=== PATIENT | female | born 1975 | race Caucasian/White ===

== ENCOUNTER 2017-04-27 14:56 | Emergency (ER) | payer MEDICAID, OTHER ==
[~2017-04-27] VITALS: Ht 172.7 cm; Wt 63.5 kg
[2017-04-27] MEDS ORDERED: SODIUM CHLORIDE 0.9% 1,000 ML IV ONE (15:20)
[2017-04-27] MEDS ORDERED: LORazepam 2MG/ML-1ML VIAL ONE (15:20)
[2017-04-27] MEDS ORDERED: LORazepam 2MG/ML-1ML VIAL IV ONE (15:30)
[2017-04-27 16:13] LABS: Basophils # (auto) 0 uL; Basophils % (auto) 0.4 % (0.0-2.0); CONDITION Y; Eosinophils # (auto) 0 uL; Eosinophils % (auto) 0.4 % (0.0-7.0); Hematocrit 35.1 % (36.0-46.0); Hemoglobin 11.5 g/dL (12.2-16.2); Lymphocytes # (auto) 1.6 uL; Lymphocytes % (auto) 22.5 % (10.0-50.0); Mean Corpuscular Hemoglobin 27.1 pg (28.0-32.0); Mean Corpuscular Hgb Conc. 32.8 g/dL (32.0-36.0); Mean Corpuscular Volume 82.6 fL (80.0-100.0); Mean Platelet Volume 8.6 fL (7.4-10.4); Monocytes # (auto) 0.4 uL; Monocytes % (auto) 6.2 % (0.0-12.0); Neutrophils # (auto) 4.9 uL; Neutrophils % (auto) 70.5 % (37.0-80.0); Platelet Count (auto) 416 10^3/uL (140-450); Red Cell Distribution Width 14.3 % (11.6-16.0)
[2017-04-27 16:22] LABS: Urine RBC None Seen /hpf (0 - 4)
[2017-04-27 16:31] LABS: Urine Bilirubin Negative (Negative); Urine Blood Negative /uL (Negative); Urine Color Yellow (Yellow); Urine Glucose Normal (Normal); Urine Ketone Negative (Negative); Urine Mucus FEW (None Seen); Urine Nitrite Negative (Negative); Urine Squamous Epithelial Cell FEW /hpf (<5); Urine Urobilinogen Normal (Negative)
[2017-04-27 16:33] LABS: Albumin 3.2 g/dL (3.4-5.0); Calcium 8.7 mg/dL (8.5-10.1); Magnesium 2.2 mg/dL (1.6-2.6)
[2017-04-27 16:41] LABS: Bilirubin, Total 0.2 mg/dL (0.2-1.0); Total Protein 6.8 g/dL (6.4-8.2)
[2017-04-27] MEDS ORDERED: VALPROATE INJ 1,000 MG in SODIUM CHL 0.9% 100 ML IV ONE (17:30)
[2017-04-27 19:50] VITALS: BP 110/78
== END 2017-04-27 20:01 | disposition home or self-care (01) ==
LOC: ER 15:04
DX: G40.909 Epilepsy, unspecified, not intractable, without status epilepticus (principal); R42 Dizziness and giddiness; R53.1 Weakness
CPT/HCPCS: 36415; 80053; 80164; 81001; 82962; 83735; 85025; 94761; 96361; 96365; 96375; 99285; J2060; J7030

== ENCOUNTER 2017-05-12 15:39 | Emergency (ER) | payer MEDICAID ==
[~2017-05-12] VITALS: Ht 175.3 cm; Wt 63.5 kg
[2017-05-12 17:03] VITALS: BP 113/79
== END 2017-05-12 17:43 | disposition home or self-care (01) ==
LOC: ER 15:40
DX: R56.9 Unspecified convulsions (principal); Z76.0 Encounter for issue of repeat prescription; R53.1 Weakness; Z86.73 Personal history of transient ischemic attack (TIA), and cerebral infarction without residual deficits; Z88.1 Allergy status to other antibiotic agents

== ENCOUNTER 2017-05-27 07:57 | Emergency (ER) | payer MEDICAID ==
[2017-05-27 08:01] VITALS: BP 104/70
== END 2017-05-27 09:05 | disposition home or self-care (01) ==
LOC: ER 07:57
DX: R56.9 Unspecified convulsions (principal); Z86.73 Personal history of transient ischemic attack (TIA), and cerebral infarction without residual deficits; Z76.0 Encounter for issue of repeat prescription; Z88.8 Allergy status to other drugs, medicaments and biological substances

== ENCOUNTER 2017-06-10 14:58 | Emergency (ER) | payer MEDICAID ==
[~2017-06-10] VITALS: Ht 175.3 cm; Wt 61.2 kg
[2017-06-10 15:35] VITALS: BP 104/68
[2017-06-10] MEDS ORDERED: KETOROLAC TROMETH 60MG/2ML VIAL IM ONE (15:45)
== END 2017-06-10 16:10 | disposition home or self-care (01) ==
LOC: ER 15:07
DX: S20.212A Contusion of left front wall of thorax, initial encounter (principal); Z88.8 Allergy status to other drugs, medicaments and biological substances; Z86.73 Personal history of transient ischemic attack (TIA), and cerebral infarction without residual deficits; W22.8XXA Striking against or struck by other objects, initial encounter; Y93.89 Activity, other specified; Y92.091 Bathroom in other non-institutional residence as the place of occurrence of the external cause; Y99.8 Other external cause status
CPT/HCPCS: 71020; 96372; 99284; J1885

== ENCOUNTER 2017-07-29 09:22 | Inpatient (IN) | payer MEDICAID ==
[~2017-07-29] VITALS: Ht 172.7 cm; Wt 65.9 kg
[2017-07-29 10:03] LABS: Basophils # (auto) 0.1 uL; Basophils % (auto) 2.2 % (0.0-2.0); Eosinophils # (auto) 0.1 uL; Hematocrit 35.4 % (36.0-46.0); Hemoglobin 11.1 g/dL (12.2-16.2); Mean Corpuscular Hemoglobin 25.6 pg (28.0-32.0); Mean Corpuscular Hgb Conc. 31.4 g/dL (32.0-36.0); Mean Corpuscular Volume 81.7 fL (80.0-100.0); Mean Platelet Volume 8.1 fL (6.9-10.8); Monocytes # (auto) 0.4 uL; Monocytes % (auto) 7.4 % (0.0-12.0); Neutrophils # (auto) 2.5 uL; Neutrophils % (auto) 50.4 % (37.0-80.0); Nucleated Red Blood Cells % 0.1 %; Platelet Count (auto) 249 10^3/uL (140-450); Red Cell Distribution Width 15.5 % (11.8-14.3)
[2017-07-29 10:19] LABS: Albumin 2.1 g/dL (3.4-5.0); Alkaline Phosphatase 44 U/L (45-117); Anion Gap 7 (5-15); Aspartate Aminotransferase 7 U/L (15-37); BUN/Creatinine Ratio 39.4; Bilirubin, Total 0.1 mg/dL (0.2-1.0); Blood Urea Nitrogen 13 mg/dL (7-18); Carbon Dioxide 18 mmol/L (21-32); Chloride 121 mmol/L (98-107); GFR African American 281 mL/min; GFR Non-African American 232 mL/min; Glucose 57 mg/dL (74-106); Magnesium 1.6 mg/dL (1.6-2.6); Sodium 146 mmol/L (136-145); Total Protein 4.4 g/dL (6.4-8.2)
[2017-07-29 10:22] LABS: Calcium 5.9 mg/dL (8.5-10.1)
[2017-07-29 10:28] LABS: INR 1.15 (0.9-1.15); Partial Thromboplastin Time 30.9 sec (22.64-33.71); Prothrombin Time 12.5 sec (9.37-12.3)
[2017-07-29] MEDS ORDERED: CALCIUM GLUC 4.65meq/50ml D5AE 50 ML IV ONE (10:30)
[2017-07-29] MEDS ORDERED: POTASSIUM CHL 10% (20 MEQ/15ML) 15ml ORAL SOLN PO ONE (10:30)
[2017-07-29 10:31] LABS: Urine Bilirubin Negative (Negative); Urine Blood Negative /uL (Negative); Urine Color Yellow (Yellow); Urine Glucose Normal (Normal); Urine Ketone Negative (Negative); Urine Mucus FEW (None Seen); Urine Nitrite Negative (Negative); Urine RBC 2 /hpf (0 - 4); Urine Squamous Epithelial Cell FEW /hpf (<5); Urine Urobilinogen Normal (Negative); Urine pH 5.5 (5.0-8.0)
[2017-07-29] MEDS ORDERED: LEVETIRACETAM 500 MG TAB PO ONE (11:15)
[2017-07-29] MEDS ORDERED: ONDANSETRON HCL 4 MG/2 ML VIAL IV ONE (11:30)
[2017-07-29] MEDS ORDERED: LORazepam 2MG/ML-1ML VIAL IV ONE ×2 (11:30→22:45)
[2017-07-29] MEDS ORDERED: LEVETIRACETAM INJ 500 MG in SODIUM CHL 0.9% 100 ML IV ONE (16:15)
[2017-07-29] MEDS ORDERED: LEVETIRACETAM 500 MG/5ML ORAL SOLN UD PO ONE (16:15)
[2017-07-29] MEDS: LORazepam 2MG/ML-1ML VIAL IV PRN ×3 (16:42→22:01)
[2017-07-29] MEDS ORDERED: ONDANSETRON HCL 4 MG/2 ML VIAL IV PRN (17:15)
[2017-07-29] MEDS ORDERED: NITROGLYCERIN 0.4 MG SL TAB SL PRN (17:15)
[2017-07-29] MEDS: SODIUM CHLORIDE 0.9% 1,000 ML IV SCH (17:21)
[2017-07-29] MEDS ORDERED: ACETAMINOPHEN 325 MG TAB PO PRN (19:30)
[2017-07-29] MEDS: HYDROcodone-ACET 5/325MG TAB PO PRN (19:34)
[2017-07-29] MEDS: LEVETIRACETAM INJ 500 MG in SODIUM CHL 0.9% 100 ML IV SCH (21:17)
[2017-07-29] MEDS ORDERED: HYDROcodone-ACET 10/325MG TAB PO PRN (21:45)
[2017-07-29] MEDS ORDERED: PHENobarbital SODIUM INJ 600 MG in SODIUM CHL 0.9% 100 ML IV ONE (22:00)
[2017-07-29] MEDS ORDERED: PHENobarbital SODIUM 130 MG/ML VL ONE (22:15)
[2017-07-29] MEDS ORDERED: PHENobarbital SODIUM 65 MG/ML VL ONE ×2 (22:17→22:24)
[2017-07-30] MEDS: SODIUM CHLORIDE 0.9% 1,000 ML IV SCH ×3 (01:25→18:08)
[2017-07-30 04:37] LABS: Bilirubin, Total 0.2 mg/dL (0.2-1.0); Calcium 8.3 mg/dL (8.5-10.1)
[2017-07-30 04:42] LABS: Basophils # (auto) 0 uL; Eosinophils # (auto) 0.1 uL; Hematocrit 31.6 % (36.0-46.0); Lymphocytes # (auto) 2.6 uL
[2017-07-30 04:44] LABS: Basophils % (auto) 0.4 % (0.0-2.0); Eosinophils % (auto) 0.9 % (0.0-7.0); Hemoglobin 10.2 g/dL (12.2-16.2); Lymphocytes % (auto) 33.4 % (10.0-50.0); Mean Corpuscular Hemoglobin 26.1 pg (28.0-32.0); Mean Corpuscular Hgb Conc. 32.4 g/dL (32.0-36.0); Mean Corpuscular Volume 80.7 fL (80.0-100.0); Monocytes # (auto) 0.5 uL; Monocytes % (auto) 6.9 % (0.0-12.0); Neutrophils # (auto) 4.5 uL; Neutrophils % (auto) 58.4 % (37.0-80.0); Nucleated Red Blood Cells % 0.1 %; Platelet Count (auto) 260 10^3/uL (140-450); Red Cell Distribution Width 15.2 % (11.8-14.3); White Blood Cell 7.8 10^3/uL (4.4-10.8)
[2017-07-30] MEDS: LEVETIRACETAM INJ 500 MG in SODIUM CHL 0.9% 100 ML IV SCH ×2 (10:30→22:11)
[2017-07-30] MEDS ORDERED: LORazepam 2MG/ML-1ML VIAL IV ONE (12:00)
[2017-07-30] MEDS ORDERED: SODIUM CHLORIDE 0.9% 250 ML IV ONE (15:00)
[2017-07-30] MEDS: LEVOFLOXACIN 500MG 100 ML IV SCH (15:10)
[2017-07-30] MEDS ORDERED: MIDAZOLAM HCL 1MG/1ML-2 ML VIAL ONE (18:39)
[2017-07-30] MEDS ORDERED: MIDAZOLAM HCL 1MG/1ML-2 ML VIAL IV ONE (19:00)
[2017-07-30] MEDS: MIDAZOLAM HCL 1MG/1ML-2 ML VIAL IV PRN ×3 (20:23→22:29)
[2017-07-30] MEDS ORDERED: LEVETIRACETAM 500 MG/5ML INJ IV ONE (22:03)
[2017-07-31] MEDS: SODIUM CHLORIDE 0.9% 1,000 ML IV SCH ×3 (02:23→21:42)
[2017-07-31 04:21] LABS: Basophils # (auto) 0 uL; Eosinophils # (auto) 0.1 uL; Eosinophils % (auto) 1.3 % (0.0-7.0); Monocytes # (auto) 0.3 uL; Nucleated Red Blood Cells % 0.1 %
[2017-07-31 04:23] LABS: Basophils % (auto) 0.3 % (0.0-2.0); Hematocrit 30.5 % (36.0-46.0); Lymphocytes # (auto) 1.9 uL; Lymphocytes % (auto) 37.1 % (10.0-50.0); Mean Corpuscular Hemoglobin 26.5 pg (28.0-32.0); Mean Corpuscular Hgb Conc. 32.6 g/dL (32.0-36.0); Mean Corpuscular Volume 81.1 fL (80.0-100.0); Neutrophils # (auto) 2.8 uL; Neutrophils % (auto) 55.3 % (37.0-80.0); Platelet Count (auto) 247 10^3/uL (140-450); Red Cell Distribution Width 15.2 % (11.8-14.3)
[2017-07-31 04:35] LABS: BUN/Creatinine Ratio 15.4; Potassium 3.9 mmol/L (3.5-5.1)
[2017-07-31] MEDS: LEVETIRACETAM INJ 500 MG in SODIUM CHL 0.9% 100 ML IV SCH ×2 (10:34→21:42)
[2017-07-31] MEDS: LEVOFLOXACIN 500MG 100 ML IV SCH (11:10)
[2017-07-31] MEDS: MIDAZOLAM HCL 1MG/1ML-2 ML VIAL IV PRN ×3 (12:25→16:57)
[2017-07-31] MEDS: HYDROcodone-ACET 5/325MG TAB PO PRN ×2 (14:05→23:30)
[2017-08-01] MEDS: SODIUM CHLORIDE 0.9% 1,000 ML IV SCH ×3 (06:56→20:11)
[2017-08-01] MEDS: LEVOFLOXACIN 500MG 100 ML IV SCH (10:10)
[2017-08-01] MEDS: SERTRALINE HCL 50 MG TAB PO SCH (10:12)
[2017-08-01] MEDS: LEVETIRACETAM INJ 500 MG in SODIUM CHL 0.9% 100 ML IV SCH ×2 (10:20→21:37)
[2017-08-01] MEDS: HYDROcodone-ACET 5/325MG TAB PO PRN (20:43)
[2017-08-01 23:30] VITALS: BP 112/83
[2017-08-02 05:17] VITALS: BP 100/69
[2017-08-02] MEDS: SODIUM CHLORIDE 0.9% 1,000 ML IV SCH ×2 (07:08→12:43)
[2017-08-02 08:00] VITALS: BP 135/72
[2017-08-02] MEDS: HYDROcodone-ACET 5/325MG TAB PO PRN (08:27)
[2017-08-02] MEDS: SERTRALINE HCL 50 MG TAB PO SCH (10:47)
[2017-08-02] MEDS: LEVOFLOXACIN 500MG 100 ML IV SCH (10:48)
[2017-08-02] MEDS: LEVETIRACETAM INJ 500 MG in SODIUM CHL 0.9% 100 ML IV SCH (11:43)
[2017-08-02 11:46] VITALS: BP 104/65
== END 2017-08-02 16:50 | DRG 53 ==
LOC: ER 09:22 → EDBD 09:22 → TELE 09:23 → DOU IN ICU 08-01 23:21
PROVIDERS: ADMIT Internal Medicine; ATTEND Internal Medicine
PROC: 4A10X4Z Monitoring of Central Nervous Electrical Activity, External Approach (ICD-10-PCS; principal; 2017-08-01)
DX: G40.401 Other generalized epilepsy and epileptic syndromes, not intractable, with status epilepticus (principal); G92 Toxic encephalopathy; E43 Unspecified severe protein-calorie malnutrition; J18.9 Pneumonia, unspecified organism; Z86.74 Personal history of sudden cardiac arrest; N18.3 Chronic kidney disease, stage 3 (moderate); R13.10 Dysphagia, unspecified; I12.9 Hypertensive chronic kidney disease with stage 1 through stage 4 chronic kidney disease, or unspecified chronic kidney disease; N39.0 Urinary tract infection, site not specified; R63.3 Feeding difficulties; R47.81 Slurred speech; E66.9 Obesity, unspecified; R79.1 Abnormal coagulation profile; D64.9 Anemia, unspecified; F41.9 Anxiety disorder, unspecified; Z86.73 Personal history of transient ischemic attack (TIA), and cerebral infarction without residual deficits; Z79.899 Other long term (current) drug therapy; Z85.118 Personal history of other malignant neoplasm of bronchus and lung; Z98.84 Bariatric surgery status; Z68.22 Body mass index [BMI] 22.0-22.9, adult; Z88.6 Allergy status to analgesic agent; Z91.040 Latex allergy status; Z88.8 Allergy status to other drugs, medicaments and biological substances
CPT/HCPCS: 36415; 51702; 70450; 70551; 71010; 80048; 80053; 80307; 81001; 81025; 82542; 82962; 83605; 83735; 84484; 85025; 85610; 85730; 87040; 87081; 92610; 93005; 93306; 93886; 95819; 96365; 96375; 97163; J0610; J1956; J2250; J2405